=== PATIENT | male | born 1970 ===

== ENCOUNTER 2016-10-02 14:30 | Emergency (ER) | payer MEDICARE ==
[2016-10-02 14:50] VITALS: BMI 31.7
[2016-10-02 14:53] VITALS: TEMP 98.8; O2SAT 99
--- NOTE | 2016-10-02 14:56 | ED PDOC ---
Arrival/HPI - General Chief Complaint: Headache Time Seen by Provider: 10/02/16 14:55 Historian: Patient - History of Present Illness Narrative History of Present Illness (Text): 10/02/16 14:55 46 y/o male, pmh including htn, nkda, c/o lt. sided headache x 2 months. Pt. stated that she has this pain been going on for the past 2 months, seen at the [facility] today which told it's sinusitis but the pain has been persistent, no dizziness, lt. sided headache radiating to the lt. jaw line region, painful to chew when eating, no night sweat, no palpitation, no rash, no dizziness, no other medical or psychological complaints. Past Medical History - Provider Review Nursing Documentation Reviewed: Yes - Cardiac Hx Cardiac Disorders: Yes Hx Hypertension: Yes - Pulmonary Hx Respiratory Disorders: No - Neurological Hx Neurological Disorder: No - HEENT Hx HEENT Disorder: No - Renal Hx Renal Disorder: No - Endocrine/Metabolic Hx Endocrine Disorders: No - Hematological/Oncological Hx Blood Disorders: No - Integumentary Hx Dermatological Disorder: Yes (acne) - Musculoskeletal/Rheumatological Hx Musculoskeletal Disorders: No - Gastrointestinal Hx Gastrointestinal Disorders: No - Genitourinary/Gynecological Hx Genitourinary Disorders: No - Psychiatric Hx Psychophysiologic Disorder: Yes Hx Post Traumatic Stress Disorder: Yes Hx Substance Use: No - Surgical History Hx Appendectomy: Yes Hx Cardiac Catheterization: Yes Hx Eye Surgery: Yes Hx Orthopedic Surgery: Yes Family/Social History - Physician Review Nursing Documentation Reviewed: Yes Family/Social History: Unknown Family HX Smoking Status: Never Smoked Hx Alcohol Use: No Hx Substance Use: No Allergies/Home Meds Allergies/Adverse Reactions: Allergies No Known Allergies Allergy (Verified 10/02/16 14:53) Home Medications: Home Meds Medication Instructions Recorded Confirmed Ibuprofen [Motrin Tab] 800 mg PO PRN PRN 10/02/16 10/02/16 diltiaZEM [Cardizem] 0 mg PO DAILY 10/02/16 10/02/16 Review of Systems - Review of Systems Constitutional: absent: Fatigue, Fevers, Night Sweats Eyes: absent: Vision Changes ENT: Other (jaw and dental pain). absent: Hearing Changes Respiratory: absent: SOB, Cough, Sputum Cardiovascular: absent: Chest Pain Gastrointestinal: absent: Abdominal Pain, Diarrhea, Nausea, Vomiting Neurological: Headache. absent: Dizziness, Focal Weakness, Gait Changes, Speech Changes, Facial Droop, Disequilibrium, Seizure Physical Exam Vital Signs Reviewed: Yes Vital Signs Temp Pulse Resp BP Pulse Ox 10/02/16 18:00 75 18 145/75 99 10/02/16 16:37 79 18 148/79 99 10/02/16 14:50 98.8 F 81 16 153/81 H 99 Temperature: Afebrile Blood Pressure: Hypertensive Pulse: Regular Respiratory Rate: Normal Appearance: Positive for: Well-Appearing, Non-Toxic, Uncomfortable Pain Distress: Severe Mental Status: Positive for: Alert and Oriented X 3 - Systems Exam Head: Present: Atraumatic, Normocephalic, Other (+ttp on the lt. parietal/ frontal sinus and lt. upper gumline region. ) Pupils: Present: PERRL Extroacular Muscles: Present: EOMI Conjunctiva: Present: Normal Mouth: Present: Moist Mucous Membranes Nose (External): No: Abrasion, Contusion, Laceration, Lesions Nose (Internal): Present: Normal Inspection, No Active Bleeding. No: Rhinorrhea , Septal Hematoma, Epistaxis Neck: Present: Normal Range of Motion Respiratory/Chest: Present: Clear to Auscultation, Good Air Exchange. No: Respiratory Distress, Accessory Muscle Use Cardiovascular: Present: Regular Rate and Rhythm, Normal S1, S2. No: Murmurs Abdomen: Present: Normal Bowel Sounds. No: Tenderness, Distention, Peritoneal Signs Back: Present: Normal Inspection Upper Extremity: Present: Normal Inspection. No: Cyanosis, Edema Lower Extremity: Present: Normal Inspection. No: Edema Neurological: Present: GCS=15, CN II-XII Intact, Speech Normal, Motor Func Grossly Intact, Gait Normal, Memory Normal, Normal 2Pt Descrimination Skin: Present: Warm, Dry, Normal Color. No: Rashes Lymphatic: No: Cervical Adenopathy Psychiatric: Present: Alert, Oriented x 3, Normal Insight, Normal Concentration Medical Decision Making ED Course and Treatment: 10/02/16 15:15 -labs/ESR -CT head/facial/sinus -IVF/decadron/percocet/visicous lidocaine -observe and reassess 10/02/16 18:26 -CT Head show no acute findings. -CT facial show: sinusits with 3rd molar possible abscess. -Labs are non-significant -ESR within normal limit. -Pain decreased significantly, toradol 30mg IV and clindamycin 900mg IV ordered. -I explained all labs and radiology results with the patient. -I reviewed the [facility] report with Dr. Jeter, reviewed no signs of drug abuse, agreed on the short term percocet for break through pain. -Discharge home with augmentin, motrin, perococet, soft food diet, claritin d24 , flonase, follow up with your own pmd and ENT/dentist within 2 days, return to the ER for any new or worsening signs or symptoms. - Lab Interpretations Lab Results: 10/02/16 16:10 10/02/16 16:10 Lab Results 10/02/16 16:10: Sodium 139, Potassium 3.8, Chloride 104, Carbon Dioxide 27, Anion Gap 12, BUN 16, Creatinine 0.9, Est GFR ( Amer) > 60, Est GFR (Non- Af Amer) > 60, Random Glucose 87, Calcium 9.0, Total Bilirubin 1.8 H, AST 28, ALT 48, Alkaline Phosphatase 78, Total Protein 7.1, Albumin 4.2, Globulin 3.0, Albumin/Globulin Ratio 1.4 10/02/16 16:10: WBC 5.8, RBC 4.86, Hgb 15.6, Hct 43.3, MCV 89.1, MCH 32.1, MCHC 36.0, RDW 12.8, Plt Count 161, MPV 9.6, Gran % 68.9 H, Lymph % (Auto) 17.5 L, Curry % (Auto) 10.6 H, Eos % (Auto) 2.8, Baso % (Auto) 0.2, Gran # 3.98, Lymph # 1.0 L, Curry # 0.6, Eos # 0.2, Baso # 0.01, ESR 10 I have reviewed the lab results: Yes Interpretation: No clinic. lab abnormalty - RAD Interpretation Radiology Orders: 10/02/16 15:05 MAXILLOFACIAL W/CONTRAST [CT] Stat 10/02/16 15:08 HEAD W/O CONTRAST [CT] Stat CT Head: show no acute findings CT Facial: IMPRESSION: Well defined lucency seen at the posterior aspect of the left mandible at the level of the previously extracted 3rd molar tooth may represent abscess formation. [id number] left maxillary sinus mucosal thickening. Small Animal Veterinarian: Radiologist - Medication Orders Current Medication Orders: Sodium Chloride (Sodium Chloride 0.9%) 1,000 mls @ 250 mls/hr IV .Q4H STA Stop: 10/02/16 19:06 Last Admin: 10/02/16 16:15 Dose: 250 mls/hr Clindamycin Phosphate 900 mg/ (Sodium Chloride) 106 mls @ 106 mls/hr IVPB STAT STA PRN Reason: Protocol Stop: 10/02/16 18:44 Discontinued Medications Dexamethasone (Decadron Inj) 8 mg IVP STAT STA Stop: 10/02/16 15:13 Last Admin: 10/02/16 16:15 Dose: 8 mg Iohexol (Omnipaque 350 100 Ml) Confirm Administered Dose 350 mg .ROUTE .[facility] Stop: 10/02/16 16:47 Ketorolac Tromethamine (Toradol) 30 mg IVP STAT STA Stop: 10/02/16 17:45 Lidocaine HCl (Lidocaine 2% Viscous) 15 ml PO STAT STA Stop: 10/02/16 15:06 Last Admin: 10/02/16 16:14 Dose: 15 ml Oxycodone/Acetaminophen (Percocet 5/325 Mg Tab) 1 tab PO STAT STA Stop: 10/02/16 15:08 Last Admin: 10/02/16 16:14 Dose: 1 tab - PA / PRISM INSPECTOR / Resident Statement / has reviewed & agrees with the documentation as recorded. Disposition/Present on Arrival - Present on Arrival Any Indicators Present on Arrival: No History of DVT/PE: No History of Uncontrolled Diabetes: No Urinary Catheter: No History of Decub. Ulcer: No History Surgical Site Infection Following: None - Disposition Have Diagnosis and Disposition been Completed?: Yes Diagnosis: Abscess, dental, Sinusitis Disposition: HOME/ ROUTINE Disposition Time: 17:50 Patient Plan: Discharge Patient Problems: Current Active Problems Problem Status Onset Abscess, dental Acute Sinusitis Acute Condition: IMPROVED Additional Instructions: Discharge home with augmentin, motrin, perococet, soft food diet, claritin d24, flonase, follow up with your own pmd and ENT/dentist within 2 days, return to the ER for any new or worsening signs or symptoms. Prescriptions: Amoxicillin/Clavulanate [Augmentin 875 MG-125 MG] 1 tab PO BID #20 tab Fluticasone Nasal [Flonase] 1 spr NS DAILY #1 bot Ibuprofen [Motrin Tab] 600 mg PO QID PRN #24 tab PRN Reason: Other Loratadine/Pseudoephedrine [Claritin-D 24 Hour Tablet] 1 each PO DAILY #7 tab.er.24h oxyCODONE/Acetaminophen [Percocet 5/325 mg Tab] 1 tab PO TID PRN #8 tab PRN Reason: Other Referrals: Bossman Pryor DO [Staff Provider] - Follow up with primary Enmanuel Andrade DMD [Non-Staff] - Follow up with primary Sivan Sprague MD [Staff Provider] - Follow up with primary Forms: WORK NOTE
[2016-10-02] MEDS ORDERED: Sodium Chloride 0.9% 1,000 ML IV STA (15:07)
[2016-10-02] MEDS ORDERED: Oxycodone/Acetaminophen 5/325 mg Tab PO STA (15:07)
[2016-10-02] MEDS ORDERED: Dexamethasone 4 mg/1 ml IVP STA (15:12)
[2016-10-02 16:16] LABS: ADD MANUAL DIFF? NO
[2016-10-02 16:22] LABS: BASO # 0.01 K/mm3 (0.0-2.0); BASO % 0.2 % (0.0-3.0); EOS # 0.2 (0.0-0.7); EOS % 2.8 % (1.5-5.0); GRAN # 3.98 (1.4-6.5); GRAN % 68.9 % (50.0-68.0); HEMATOCRIT 43.3 % (42.0-52.0); LYMPH % 17.5 % (22.0-35.0); MEAN CELL VOLUME 89.1 fL (80.0-105.0); MEAN CORPUSCULAR HEMOGLOBIN 32.1 pg (25.0-35.0); MEAN PLATELET VOLUME 9.6 fl (7.0-11.0); MONO # 0.6 (0.1-0.6); MONO % 10.6 % (1.0-6.0); PLATELET COUNT 161 10^3/uL (120.0-450.0); RED CELL DISTRIBUTION WIDTH 12.8 % (11.5-14.5); WHITE BLOOD COUNT 5.8 10^3/ul (4.5-11.0)
[2016-10-02 16:30] LABS: ALB/GLOB RATIO 1.4 (1.1-1.8); ALKALINE PHOSPHATASE 78 U/L (38-133); ALT/SGPT 48 U/L (7-56); AST/SGOT 28 U/L (15-59); BILIRUBIN,TOTAL 1.8 mg/dL (0.2-1.3); BLOOD UREA NITROGEN 16 mg/dL (7-21); CARBON DIOXIDE 27 mmol/L (21-33); CHLORIDE 104 mmol/L (98-107); GFR AFRICAN-AMERICAN > 60; GLUCOSE,RANDOM 87 mg/dL (70-110); POTASSIUM 3.8 mmol/L (3.6-5.0); SODIUM 139 mmol/L (132-148); TOTAL PROTEIN 7.1 g/dL (5.8-8.3)
[2016-10-02] MEDS ORDERED: Iohexol 350 MG/100 ML VIAL ONE (16:46)
--- NOTE | 2016-10-02 17:13 | CT ---
PROCEDURE: CT HEAD WITHOUT CONTRAST. HISTORY: lt. frontal headache x 2 months COMPARISON: None available. TECHNIQUE: Axial computed tomography images were obtained through the head/brain without intravenous contrast. Radiation dose: Total exam DLP = 774.23 mGy-cm. This CT exam was performed using one or more of the following dose reduction techniques: Automated exposure control, adjustment of the mA and/or kV according to patient size, and/or use of iterative reconstruction technique. FINDINGS: HEMORRHAGE: No intracranial hemorrhage. BRAIN: No mass effect or edema. No atrophy or chronic microvascular ischemic changes. VENTRICLES: Unremarkable. No hydrocephalus. CALVARIUM: Unremarkable. PARANASAL SINUSES: Unremarkable as visualized. No significant inflammatory changes. MASTOID AIR CELLS: Unremarkable as visualized. No inflammatory changes. OTHER FINDINGS: None. IMPRESSION: No evidence of acute intracranial hemorrhage intracranial collection mass effect or midline shift.
[2016-10-02 17:25] LABS: ERYTHROCYTE SEDIMENTATION RATE 10 mm/hr (0.0-15.0)
--- NOTE | 2016-10-02 17:29 | CT ---
PROCEDURE: CT MAXILLOFACIAL BONES WITHOUT CONTRAST HISTORY: lt. sided headache/toothache x 2 months. COMPARISON: None TECHNIQUE: Contiguous axial CT images of the maxillofacial bones were obtained. Coronal and sagittal reformats were generated. Radiation dose: Total exam DLP = 796.76 mGy-cm. This CT exam was performed using one or more of the following dose reduction techniques: Automated exposure control, adjustment of the mA and/or kV according to patient size, and/or use of iterative reconstruction technique. FINDINGS: NASAL BONES: No evidence of acute fracture ORBITS: Unremarkable. PARANASAL SINUSES/ MASTOIDS: Clear. MAXILLA: [id number] left maxillary sinus mucosal thickening seen. MANDIBLE/ TEMPOROMANDIBULAR JOINTS: There is lucency in the mid to posterior aspect of the left mandible may represent abscess formation. This lucency seen at the level of the 3rd molar tooth measures 15 x 13 millimeter. SKULL BASE: Unremarkable. TEMPORAL BONES: Middle ears and mastoid grossly unremarkable. OTHER FINDINGS: None. IMPRESSION: Well defined lucency seen at the posterior aspect of the left mandible at the level of the previously extracted 3rd molar tooth may represent abscess formation. [id number] left maxillary sinus mucosal thickening.
[2016-10-02 17:38] VITALS: RESP 18
[2016-10-02 19:05] VITALS: BP 143/71; PULSE 69
== END 2016-10-02 19:45 | disposition home or self-care (01) ==
LOC: ED 14:30
DX: J32.9 Chronic sinusitis, unspecified (principal); K04.7 Periapical abscess without sinus
CPT/HCPCS: 70450; 70488; 80053; 85025; 85651; 96374; 96375; 99285; J1100; J1885; J7040; Q9967

== ENCOUNTER 2016-10-08 17:35 | Emergency (ER) | payer MEDICARE ==
[2016-10-08 17:35] VITALS: BMI 31.7
[2016-10-08 17:44] VITALS: BP 113/71; TEMP 98; O2SAT 97
[2016-10-08 17:50] VITALS: PULSE 17; RESP 69
[2016-10-08] MEDS ORDERED: Oxycodone/Acetaminophen 5/325 mg Tab PO STA (17:50)
[2016-10-08] MEDS ORDERED: Lidocaine 2% Viscous 100 ml PO STA (17:50)
--- NOTE | 2016-10-08 17:57 | ED PDOC ---
Arrival/HPI - General Chief Complaint: Dental Pain Time Seen by Provider: 10/08/16 17:40 Historian: Patient - History of Present Illness Narrative History of Present Illness (Text): 10/08/16 17:55 46 y/o male, lt. upper molar abscess discussed about 1 week ago by me due to the headache and jaw pain, on antibiotic now. Pt. is here because he is here to obtain the medical record and started to have the dental pain again, no fever or chills, no headache, no dizziness, no rash, no night sweat, no other medical or psychological complaints. Past Medical History - Provider Review Nursing Documentation Reviewed: Yes - Cardiac Hx Cardiac Disorders: Yes Hx Hypertension: Yes - Pulmonary Hx Respiratory Disorders: No - Neurological Hx Neurological Disorder: No - HEENT Hx HEENT Disorder: No - Renal Hx Renal Disorder: No - Endocrine/Metabolic Hx Endocrine Disorders: No - Hematological/Oncological Hx Blood Disorders: No - Integumentary Hx Dermatological Disorder: Yes (acne) - Musculoskeletal/Rheumatological Hx Musculoskeletal Disorders: No - Gastrointestinal Hx Gastrointestinal Disorders: No - Genitourinary/Gynecological Hx Genitourinary Disorders: No - Psychiatric Hx Psychophysiologic Disorder: Yes Hx Post Traumatic Stress Disorder: Yes Hx Substance Use: No - Surgical History Hx Appendectomy: Yes Hx Cardiac Catheterization: Yes Hx Eye Surgery: Yes Hx Orthopedic Surgery: Yes - Anesthesia Hx Anesthesia: No Hx Anesthesia Reactions: No Family/Social History - Physician Review Nursing Documentation Reviewed: Yes Family/Social History: Unknown Family HX Smoking Status: Never Smoked Hx Alcohol Use: No Hx Substance Use: No Allergies/Home Meds Allergies/Adverse Reactions: Allergies No Known Allergies Allergy (Verified 10/02/16 14:53) Home Medications: Home Meds Medication Instructions Recorded Confirmed Ibuprofen [Motrin Tab] 800 mg PO PRN PRN 10/02/16 10/02/16 diltiaZEM [Cardizem] 0 mg PO DAILY 10/02/16 10/02/16 Review of Systems - Review of Systems Constitutional: absent: Fatigue, Fevers Eyes: absent: Vision Changes ENT: Other (dental pain). absent: Hearing Changes Respiratory: absent: SOB, Cough Cardiovascular: absent: Chest Pain Gastrointestinal: absent: Abdominal Pain, Nausea, Vomiting Genitourinary Male: absent: Dysuria Psychiatric: absent: Anxiety, Depression, Suicidal Ideation Physical Exam Vital Signs Reviewed: Yes Vital Signs Temp Pulse Resp BP Pulse Ox 10/08/16 17:43 98.0 F 17 L 69 H 97 10/08/16 17:36 98.0 F 69 17 113/71 97 Temperature: Afebrile Blood Pressure: Normal Pulse: Regular Respiratory Rate: Normal Appearance: Positive for: Well-Appearing, Non-Toxic Pain Distress: Severe Mental Status: Positive for: Alert and Oriented X 3 - Systems Exam Head: Present: Atraumatic, Normocephalic, Other (No facial swelling or cellulitis. ) Pupils: Present: PERRL Extroacular Muscles: Present: EOMI Conjunctiva: Present: Normal Mouth: Present: Moist Mucous Membranes, Normal Lips, Normal Teeth (visible multiple dental caries) Nose (External): Present: Atraumatic. No: Abrasion, Contusion, Laceration, Lesions Nose (Internal): Present: Normal Inspection, No Active Bleeding. No: Rhinorrhea , Septal Hematoma, Epistaxis Neck: Present: Normal Range of Motion, Trachea Midline. No: MIDLINE TENDERNESS , Lymphadenopathy Respiratory/Chest: Present: Clear to Auscultation, Good Air Exchange. No: Respiratory Distress, Accessory Muscle Use Cardiovascular: Present: Regular Rate and Rhythm, Normal S1, S2. No: Murmurs Abdomen: Present: Normal Bowel Sounds. No: Tenderness, Distention, Peritoneal Signs Back: Present: Normal Inspection Upper Extremity: Present: Normal Inspection. No: Cyanosis, Edema Lower Extremity: Present: Normal Inspection. No: Edema Neurological: Present: GCS=15, CN II-XII Intact, Speech Normal Skin: Present: Warm, Dry, Normal Color. No: Rashes Psychiatric: Present: Alert, Oriented x 3, Normal Insight, Normal Concentration Medical Decision Making ED Course and Treatment: 10/08/16 17:57 -toradol IM/percocet/viscous lidocaine, will discharge home. -Pt. stated that he just obtained his medical records today, will bring the CT report to the [place] dentist tomorrow for procedure -Discharge home with education on continue the antibiotic at home, stay hydrated , bed rest, follow up with your own pmd and dentist within 2 days, return to the ER for any new or worsening signs or symptoms. 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 Disposition/Present on Arrival - Present on Arrival Any Indicators Present on Arrival: No History of DVT/PE: No History of Uncontrolled Diabetes: No Urinary Catheter: No History of Decub. Ulcer: No History Surgical Site Infection Following: None - Disposition Have Diagnosis and Disposition been Completed?: Yes Diagnosis: Pain, dental Disposition: HOME/ ROUTINE Disposition Time: 17:57 Patient Plan: Discharge Patient Problems: Current Active Problems Problem Status Onset Pain, dental Acute Condition: IMPROVED Additional Instructions: Discharge home with education on continue the antibiotic at home, stay hydrated , bed rest, follow up with your own pmd and dentist within 2 days, return to the ER for any new or worsening signs or symptoms. Referrals: PCP,NO [Primary Care Provider] - Follow up with primary Enmanuel Andrade DMD [Non-Staff] - Follow up with primary Forms: WORK NOTE
== END 2016-10-08 18:27 | disposition home or self-care (01) ==
LOC: ED 17:35
DX: K08.89 Other specified disorders of teeth and supporting structures (principal)
CPT/HCPCS: 96372; 99282; J1885

== ENCOUNTER 2017-07-02 05:21 | Emergency (ER) | payer MEDICARE ==
[2017-07-02 05:21] VITALS: BMI 31.7
[2017-07-02] MEDS ORDERED: Sodium Chloride 0.9% 1,000 ML IV STA (05:53)
--- NOTE | 2017-07-02 05:54 | ED PDOC ---
Arrival/HPI - General Time Seen by Provider: 07/02/17 05:28 Historian: Patient - History of Present Illness Narrative History of Present Illness (Text): 07/02/17 05:52 A 46 year old male, whose past medical history includes hypertension, [place] War syndrome, appendectomy, and intestinal obstruction(child), presents to the emergency department complaining of abdominal pain that began this morning. The patient denies nausea, vomiting, diarrhea, back pain, fever, chills, urinary complaints, or any other complaint.States had a peanut butter sandwich as last meal yesterday evening.Hx.of only occassional alcohol use none recently. PMD: None Time/Duration: Other (This morning) Symptom Onset: Sudden Symptom Course: Unchanged Activities at Onset: Rest, Light Context: Home Past Medical History - Provider Review Nursing Documentation Reviewed: Yes - Cardiac Hx Cardiac Disorders: Yes Hx Hypertension: Yes - Pulmonary Hx Respiratory Disorders: No - Neurological Hx Neurological Disorder: No - HEENT Hx HEENT Disorder: No - Renal Hx Renal Disorder: No - Endocrine/Metabolic Hx Endocrine Disorders: No - Hematological/Oncological Hx Blood Disorders: No - Integumentary Hx Dermatological Disorder: Yes (acne) - Musculoskeletal/Rheumatological Hx Musculoskeletal Disorders: No - Gastrointestinal Hx Gastrointestinal Disorders: No - Genitourinary/Gynecological Hx Genitourinary Disorders: No - Psychiatric Hx Psychophysiologic Disorder: Yes Hx Post Traumatic Stress Disorder: Yes Hx Substance Use: No - Surgical History Hx Appendectomy: Yes Hx Cardiac Catheterization: Yes Hx Eye Surgery: Yes Hx Orthopedic Surgery: Yes - Anesthesia Hx Anesthesia: No Hx Anesthesia Reactions: No Family/Social History - Physician Review Nursing Documentation Reviewed: Yes Family/Social History: No Known Family HX Smoking Status: Never Smoked Hx Alcohol Use: No Hx Substance Use: No Allergies/Home Meds Allergies/Adverse Reactions: Allergies No Known Allergies Allergy (Verified 07/02/17 05:39) Home Medications: Home Meds Medication Instructions Recorded Confirmed diltiaZEM [Cardizem] 120 mg PO DAILY 10/02/16 07/02/17 Review of Systems - Physician Review All systems were reviewed & negative as marked: Yes - Review of Systems Constitutional: absent: Fevers Gastrointestinal: Abdominal Pain (Diffuse abdominal pain). absent: Stool Changes, Diarrhea, Nausea, Vomiting Genitourinary Male: absent: Urinary Output Changes Musculoskeletal: absent: Back Pain, Neck Pain Physical Exam Vital Signs Reviewed: Yes Vital Signs Temp Pulse Resp BP Pulse Ox 07/02/17 06:24 62 17 120/73 100 07/02/17 05:40 97.6 F 73 18 125/79 98 Temperature: Afebrile Blood Pressure: Normal Pulse: Regular Respiratory Rate: Normal Appearance: Positive for: Well-Appearing, Non-Toxic, Comfortable Pain Distress: None Mental Status: Positive for: Alert and Oriented X 3 - Systems Exam Head: Present: Atraumatic, Normocephalic Pupils: Present: PERRL Extroacular Muscles: Present: EOMI Conjunctiva: Present: Normal Mouth: Present: Moist Mucous Membranes Neck: Present: Normal Range of Motion Respiratory/Chest: Present: Clear to Auscultation, Good Air Exchange. No: Respiratory Distress, Accessory Muscle Use Cardiovascular: Present: Regular Rate and Rhythm, Normal S1, S2. No: Murmurs Abdomen: Present: Tenderness (Tenderness to the upper abdomen). No: Rebound, Guarding Back: Present: Normal Inspection Upper Extremity: Present: Normal Inspection. No: Cyanosis, Edema Lower Extremity: Present: Normal Inspection. No: Edema Neurological: Present: GCS=15, CN II-XII Intact, Speech Normal Skin: Present: Warm, Dry, Normal Color. No: Rashes Psychiatric: Present: Alert, Oriented x 3, Normal Insight, Normal Concentration Medical Decision Making ED Course and Treatment: 07/02/17 05:55 Impression: A 46 year old male presents to the emergency department complaining of abdominal pain that began this morning. Plan: -- Labs -- Urinalysis -- Pepcid, Toradol, and IV Fluids -- Reassess and disposition Progress Notes: - Lab Interpretations Lab Results: 07/02/17 06:00 07/02/17 06:00 Lab Results 07/02/17 06:00: WBC 7.8 D, RBC 5.08, Hgb 16.0, Hct 45.5, MCV 89.6, MCH 31.5, MCHC 35.2, RDW 12.7, Plt Count 170, MPV 10.1 07/02/17 06:00: Sodium 139, Potassium 4.2, Chloride 103, Carbon Dioxide 24, Anion Gap 16, BUN 12, Creatinine 0.8, Est GFR ( Amer) > 60, Est GFR (Non- Af Amer) > 60, Random Glucose 129 H, Calcium 9.9, Total Bilirubin 1.5 H, AST 24 , ALT 45, Alkaline Phosphatase 76, Total Protein 7.1, Albumin 4.1, Globulin 3.0 , Albumin/Globulin Ratio 1.4, Lipase 646 H I have reviewed the lab results: Yes - RAD Interpretation Radiology Orders: 07/02/17 06:52 ABDOMEN COMPLETE [US] Stat - Medication Orders Current Medication Orders: Discontinued Medications Famotidine (Pepcid) 20 mg IVP STAT STA Stop: 07/02/17 05:54 Last Admin: 07/02/17 06:09 Dose: 20 mg IVP Administration Document 07/02/17 06:09 IT (Rec: 07/02/17 06:09 IT [id number]) Charges for Administration # of IVP Administrations 1 Sodium Chloride (Sodium Chloride 0.9%) 1,000 mls @ 999 mls/hr IV .Q1H1M STA Stop: 07/02/17 06:53 Last Admin: 07/02/17 06:09 Dose: 999 mls/hr eMAR Start Stop Document 07/02/17 06:09 IT (Rec: 07/02/17 06:09 IT [id number]) Intravenous Solution Start Date 07/02/17 Start Time 06:09 End Date 07/02/17 End time 07:09 Total Infusion Time 60 Ketorolac Tromethamine (Toradol) 30 mg IVP ONCE ONE Stop: 07/02/17 05:54 Last Admin: 07/02/17 06:09 Dose: 30 mg MAR Pain Assessment Document 07/02/17 06:09 IT (Rec: 07/02/17 06:09 IT [id number]) Pain Reassessment Is this a pain reassessment? No Sleep Is patient sleeping during reassessment? No Presence of Pain Presence of Pain Yes IVP Administration Document 07/02/17 06:09 IT (Rec: 07/02/17 06:09 IT [id number]) Charges for Administration # of IVP Administrations 1 - Transfer of Care Patient signed out to Dr:: Alphonso Other: labs /ultrasound/reassess/final disposition - Scribe Statement The provider has reviewed the documentation as recorded by the Scribe Laurie Joshua Provider Scribe Attestation: All medical record entries made by the Scribe were at my direction and personally dictated by me. I have reviewed the chart and agree that the record accurately reflects my personal performance of the history, physical exam, medical decision making, and the department course for this patient. I have also personally directed, reviewed, and agree with the discharge instructions and disposition. Disposition/Present on Arrival - Present on Arrival Any Indicators Present on Arrival: No History of DVT/PE: No History of Uncontrolled Diabetes: No Urinary Catheter: No History Surgical Site Infection Following: None - Disposition Have Diagnosis and Disposition been Completed?: No Diagnosis: Abdominal pain Disposition Time: 07:00 Condition: STABLE
[2017-07-02 06:18] LABS: MEAN CELL VOLUME 89.6 fl (80.0-105.0); MEAN CORPUSCULAR HEMOGLOBIN 31.5 pg (25.0-35.0); MEAN CORPUSCULAR HGB CONC 35.2 g/dl (31.0-37.0); MEAN PLATELET VOLUME 10.1 fl (7.0-11.0); RBC 5.08 10^6/uL (3.5-6.1); RED CELL DISTRIBUTION WIDTH 12.7 % (11.5-14.5); WHITE BLOOD COUNT 7.8 10^3/ul (4.5-11.0)
[2017-07-02 06:31] LABS: ALB/GLOB RATIO 1.4 (1.1-1.8); ALBUMIN 4.1 g/dL (3.0-4.8); ALT/SGPT 45 U/L (7-56); AST/SGOT 24 U/L (17-59); BLOOD UREA NITROGEN 12 mg/dL (7-21); CALCIUM 9.9 mg/dL (8.4-10.5); GFR AFRICAN-AMERICAN > 60; GFR NON-AFRICAN AMERICAN > 60; LIPASE 646 U/L (23-300)
--- NOTE | 2017-07-02 07:12 | ED PDOC ---
Physical Exam Vital Signs Reviewed: Yes Vital Signs Temp Pulse Resp BP Pulse Ox 07/02/17 09:11 54 L 19 113/70 98 07/02/17 07:50 97.8 F 57 L 20 110/69 98 07/02/17 06:24 62 17 120/73 100 07/02/17 05:40 97.6 F 73 18 125/79 98 Temperature: Afebrile Blood Pressure: Normal Pulse: Regular Respiratory Rate: Normal Appearance: Positive for: Well-Appearing, Non-Toxic, Other (resting in bed, slightly uncomfortable, alert/awake, NAD, cooperative, follows command with ease ) Pain Distress: None Mental Status: Positive for: Alert and Oriented X 3 - Systems Exam Head: Present: Atraumatic, Normocephalic Pupils: Present: PERRL, Other (wearing eyeglasses) Extroacular Muscles: Present: EOMI Conjunctiva: Present: Normal Ears: Present: Normal Mouth: Present: Moist Mucous Membranes, Normal Teeth Pharnyx: Present: Normal Nose (External): Present: Atraumatic Nose (Internal): Present: Normal Inspection Neck: Present: Normal Range of Motion, Trachea Midline. No: Meningeal Signs, MIDLINE TENDERNESS Respiratory/Chest: Present: Clear to Auscultation, Good Air Exchange, Other ( CTA b/l, no w/r/r) Cardiovascular: Present: Regular Rate and Rhythm, Normal S1, S2. No: Murmurs Abdomen: Present: Normal Bowel Sounds, Other (mild mid abd tenderness, no trejo 's sign, no mcburney's point tenderness, no masses/rebound/guarding/rigidity, well nourished male) Back: Present: Normal Inspection. No: Midline Tenderness Upper Extremity: Present: Normal Inspection, Normal ROM, NORMAL PULSES, Capillary Refill < 2s Lower Extremity: Present: Normal Inspection, NORMAL PULSES, Normal ROM, Neurovascularly Intact, Capillary Refill < 2 s Neurological: Present: GCS=15, CN II-XII Intact, Speech Normal Skin: Present: Warm, Normal Color, Other (cap refill < 1sec, no ulcerations, no petechiae) Psychiatric: Present: Alert, Oriented x 3 Medical Decision Making ED Course and Treatment: 07/02/17 07:03 Patient endorsed to me by Dr. Wilson. Currently awaiting Abdominal Ultrasound findings and pt can be disposition accordingly. 07/02/17 08:18 pt felt improved, currently pain is 2/[address] results 0900 - pt developed elevation of pain pt received morphine and felt much improved 1000 - pt tolerated po, no vomiting pt is made aware of his medical results pt is encouraged bland diet pt is encouraged fluid hydration pt will f/u as directed pt will be discharged home Re-evaluation Time: 08:15 Reassessment Condition: Improved - Lab Interpretations Lab Results: 07/02/17 06:00 07/02/17 06:00 Lab Results 07/02/17 08:08: Urine Color Yellow, Urine Appearance Clear, Urine pH 6.0, Ur Specific [place] 1.010, Urine Protein Negative, Urine Glucose (UA) Negative, Urine Ketones Negative, Urine Blood Negative, Urine Nitrate Negative, Urine Bilirubin Negative, Urine Urobilinogen 0.2, Ur Leukocyte Esterase Negative 07/02/17 06:00: WBC 7.8 D, RBC 5.08, Hgb 16.0, Hct 45.5, MCV 89.6, MCH 31.5, MCHC 35.2, RDW 12.7, Plt Count 170, MPV 10.1 07/02/17 06:00: Sodium 139, Potassium 4.2, Chloride 103, Carbon Dioxide 24, Anion Gap 16, BUN 12, Creatinine 0.8, Est GFR ( Amer) > 60, Est GFR (Non- Af Amer) > 60, Random Glucose 129 H, Calcium 9.9, Total Bilirubin 1.5 H, AST 24 , ALT 45, Alkaline Phosphatase 76, Total Protein 7.1, Albumin 4.1, Globulin 3.0 , Albumin/Globulin Ratio 1.4, Lipase 646 H I have reviewed the lab results: Yes Interpretation: Abnormal lab values (elevated lipase) - RAD Interpretation Narrative RAD Interpretations (Text): 07/02/2017 07:39 Abdominal Ultrasound IMPRESSION: 1. There is a diffuse increase in hepatic parenchymal echogenicity, consistent with fatty infiltration. There are no focal lesions present. There is normal hepatopedal flow noted in the portal vein. 2. The gallbladder is normal without evidence for gallstones, wall thickening or pericholecystic fluid. No sonographic Trejo sign is seen. 3. The pancreas is obscured by overlying bowel gas limiting evaluation. Dictator: Holden Fernando MD 07/02/17 09:45 PROCEDURE: CT Abdomen and Pelvis with contrast HISTORY: epigastric pain, elevated lipase COMPARISON: None. TECHNIQUE: Contrast dose: 150 cc of Omni 350 Radiation dose: Total exam DLP = 907 mGy-cm. This CT exam was performed using one or more of the following dose reduction techniques: Automated exposure control, adjustment of the mA and/or kV according to patient size, and/or use of iterative reconstruction technique. FINDINGS: LOWER THORAX: Unremarkable. LIVER: Unremarkable. No gross lesion or ductal dilatation. GALLBLADDER AND BILE DUCTS: Unremarkable. PANCREAS: Unremarkable. No gross lesion or ductal dilatation. SPLEEN: Unremarkable. ADRENALS: Unremarkable. No mass. KIDNEYS AND URETERS: Unremarkable. No hydronephrosis. No solid mass. VASCULATURE: Unremarkable. No aortic aneurysm. BOWEL: Unremarkable. No obstruction. No gross mural thickening. APPENDIX: Normal appendix. PERITONEUM: Unremarkable. No free fluid. No free air. LYMPH NODES: Unremarkable. No enlarged lymph nodes. BLADDER: Unremarkable. REPRODUCTIVE: Unremarkable. BONES: No acute fracture. OTHER FINDINGS: None. IMPRESSION: No acute findings Radiology Orders: 07/02/17 06:52 ABDOMEN COMPLETE [US] Stat 07/02/17 08:00 ABD & PELVIS IV CONTRAST ONLY [CT] Stat [place] Smoker: Radiologist - Medication Orders Current Medication Orders: Discontinued Medications Famotidine (Pepcid) 20 mg IVP STAT STA Stop: 07/02/17 05:54 Last Admin: 07/02/17 06:09 Dose: 20 mg IVP Administration Document 07/02/17 06:09 IT (Rec: 07/02/17 06:09 IT [id number]) Charges for Administration # of IVP Administrations 1 Sodium Chloride (Sodium Chloride 0.9%) 1,000 mls @ 999 mls/hr IV .Q1H1M STA Stop: 07/02/17 06:53 Last Admin: 07/02/17 06:09 Dose: 999 mls/hr eMAR Start Stop Document 07/02/17 06:09 IT (Rec: 07/02/17 06:09 IT [id number]) Intravenous Solution Start Date 07/02/17 Start Time 06:09 End Date 07/02/17 End time 07:09 Total Infusion Time 60 Ketorolac Tromethamine (Toradol) 30 mg IVP ONCE ONE Stop: 07/02/17 05:54 Last Admin: 07/02/17 06:09 Dose: 30 mg MAR Pain Assessment Document 07/02/17 06:09 IT (Rec: 07/02/17 06:09 IT [id number]) Pain Reassessment Is this a pain reassessment? No Sleep Is patient sleeping during reassessment? No Presence of Pain Presence of Pain Yes IVP Administration Document 07/02/17 06:09 IT (Rec: 07/02/17 06:09 IT [id number]) Charges for Administration # of IVP Administrations 1 Morphine Sulfate (Morphine) 4 mg IVP STAT STA Stop: 07/02/17 09:04 Last Admin: 07/02/17 09:11 Dose: 4 mg MAR Pain Assessment Document 07/02/17 09:11 OCS (Rec: 07/02/17 09:11 OCS [id number]) Pain Reassessment Is this a pain reassessment? Yes Sleep Is patient sleeping during reassessment? No Presence of Pain Presence of Pain Yes Pain Scale Used Pain Scale Used Numeric Location Left, Right or Bilateral Bilateral Upper or Lower Upper Pain Location Body Site Abdomen Description Description Constant Intensity of Pain at present 7 Pain Behavior Irritability Rubbing Site Aggravating Factors ADL's IVP Administration Document 07/02/17 09:11 OCS (Rec: 07/02/17 09:11 OCS [id number]) Charges for Administration # of IVP Administrations 1 - Scribe Statement The provider has reviewed the documentation as recorded by the Scribe Jodi Peñaloza Provider Scribe Attestation: All medical record entries made by the Scribe were at my direction and personally dictated by me. I have reviewed the chart and agree that the record accurately reflects my personal performance of the history, physical exam, medical decision making, and the department course for this patient. I have also personally directed, reviewed, and agree with the discharge instructions and disposition. Disposition/Present on Arrival - Present on Arrival Any Indicators Present on Arrival: No History of DVT/PE: No History of Uncontrolled Diabetes: No Urinary Catheter: No History of Decub. Ulcer: No History Surgical Site Infection Following: None - Disposition Have Diagnosis and Disposition been Completed?: Yes Diagnosis: Abdominal pain, Epigastric pain Disposition: HOME/ ROUTINE Disposition Time: 09:45 Patient Plan: Discharge Patient Problems: Current Active Problems Problem Status Onset Abdominal pain Acute Condition: STABLE Discharge Instructions (ExitCare): Acute Abdomen (Belly Pain), Adult (DC), Pancreatitis Print Language: FINNISH Additional Instructions: Make sure to see your doctor in 1-2 days DRINK PLENTY OF FLUIDS BLAND DIET IS ENCOURAGED take your medications as prescribed RETURN TO ED IF worse pain, cant breath, persistent vomiting, high fever >101- 102 for hours, altered behavior, unable to urinate, heavy/persistent bleeding, passing out, chest pain, or other medical emergencies Prescriptions: Ibuprofen [Motrin] 400 mg PO QID PRN #30 tab PRN Reason: Pain, Mild (1-3) Ondansetron ODT [Zofran ODT] 4 mg PO TID PRN #10 odt PRN Reason: Nausea/Vomiting oxyCODONE/Acetaminophen [Percocet 5/325 mg Tab] 1 ea PO TID PRN #12 tab PRN Reason: Pain, Moderate (4-7) Referrals: PCP,NO [Non-Staff] - Follow up with primary Bonnie Prieto MD [Medical Doctor] - Follow up with primary Forms: [employer] (Hungarian)
--- NOTE | 2017-07-02 07:39 | US ---
EXAM: US Abdomen Complete CLINICAL HISTORY: 46 years old, male; Pain; Abdominal pain; Epigastric TECHNIQUE: Real-time ultrasound of the abdomen (complete) with image documentation. COMPARISON: No relevant prior studies available. FINDINGS: Liver: There is a diffuse increase in hepatic parenchymal echogenicity, consistent with fatty infiltration.There are no focal lesions present.There is normal hepatopedal flow noted in the portal vein. Gallbladder: The gallbladder is normal without evidence for gallstones, wall thickening or pericholecystic fluid.No sonographic Trejo sign is seen. Common bile duct: 5 mm There is no evidence of biliary ductal dilation. No stones. Pancreas: The pancreas is obscured by overlying bowel gas limiting evaluation. Kidneys: The kidneys are unremarkable. No renal calculus, hydronephrosis, solid or cystic masses are seen. Spleen: The spleen is normal in size and morphology. Aorta: The abdominal aorta is normal in caliber without evidence for dissection or aneurysm. Inferior vena cava: Unremarkable. Free fluid: No free fluid is seen. IMPRESSION: 1. There is a diffuse increase in hepatic parenchymal echogenicity, consistent with fatty infiltration.There are no focal lesions present.There is normal hepatopedal flow noted in the portal vein. 2. The gallbladder is normal without evidence for gallstones, wall thickening or pericholecystic fluid.No sonographic Trejo sign is seen. 3. The pancreas is obscured by overlying bowel gas limiting evaluation.
[2017-07-02 07:56] VITALS: TEMP 97.8
[2017-07-02 08:23] LABS: URINE BILIRUBIN NEGATIVE (NEGATIVE); URINE BLOOD NEGATIVE (NEGATIVE); URINE GLUCOSE (UA) NEGATIVE (NEGATIVE); URINE LEUKOCYTE ESTERASE NEGATIVE Leu/uL (NEGATIVE); URINE NITRATE NEGATIVE (NEGATIVE); URINE PROTEIN NEGATIVE mg/dL (<30 mg/dL); URINE UROBILINOGEN 0.2 E.U./dL (<1 E.U./dL)
[2017-07-02 08:26] LABS: URINE APPEARANCE CLEAR (CLEAR); URINE COLOR YELLOW (YELLOW)
[2017-07-02] MEDS ORDERED: Morphine 4 mg/ml ISec IVP STA (09:03)
[2017-07-02 09:12] VITALS: RESP 19
--- NOTE | 2017-07-02 09:39 | CT ---
PROCEDURE: CT Abdomen and Pelvis with contrast HISTORY: epigastric pain, elevated lipase COMPARISON: None. TECHNIQUE: Contrast dose: 150 cc of Omni 350 Radiation dose: Total exam DLP = 907 mGy-cm. This CT exam was performed using one or more of the following dose reduction techniques: Automated exposure control, adjustment of the mA and/or kV according to patient size, and/or use of iterative reconstruction technique. FINDINGS: LOWER THORAX: Unremarkable. LIVER: Unremarkable. No gross lesion or ductal dilatation. GALLBLADDER AND BILE DUCTS: Unremarkable. PANCREAS: Unremarkable. No gross lesion or ductal dilatation. SPLEEN: Unremarkable. ADRENALS: Unremarkable. No mass. KIDNEYS AND URETERS: Unremarkable. No hydronephrosis. No solid mass. VASCULATURE: Unremarkable. No aortic aneurysm. BOWEL: Unremarkable. No obstruction. No gross mural thickening. APPENDIX: Normal appendix. PERITONEUM: Unremarkable. No free fluid. No free air. LYMPH NODES: Unremarkable. No enlarged lymph nodes. BLADDER: Unremarkable. REPRODUCTIVE: Unremarkable. BONES: No acute fracture. OTHER FINDINGS: None. IMPRESSION: No acute findings
[2017-07-02 10:46] VITALS: BP 114/67; PULSE 56; O2SAT 96
== END 2017-07-02 10:46 | disposition home or self-care (01) ==
LOC: ED 05:21
DX: R10.9 Unspecified abdominal pain (principal); I10 Essential (primary) hypertension
CPT/HCPCS: 74177; 76700; 80053; 81003; 83690; 85027; 96361; 96374; 96375; 99285; J1885; J2270; J7040; Q9967